=== PATIENT | male | born 1930 | race Caucasian/White ===

== ENCOUNTER 2016-07-12 09:26 | Inpatient (IN) | payer OTHER ==
[~2016-07-12] VITALS: Ht 195.6 cm; Wt 91.1 kg
[2016-07-12] VITALS (9 sets, daily range): BP systolic 93–156; BP diastolic 40–54
--- NOTE | ~2016-07-12 | P ---
[facility] [place] [address] PROCEDURE REPORT Name: ELDER MIRANDA Room #: 214-P [facility] IN ..#: [id number] Admission: 07/12/16 Attend Phys: Bill Turner MD Discharge: 07/14/16 Date of : 10/[birth year] Report #: [id number] THIS REPORT FOR: //name// CC: Brit Turner MD DATE OF SERVICE: 07/13/2016 PROCEDURE PERFORMED: Colonoscopy with bleeding control and polypectomy. HISTORY OF PRESENT ILLNESS: The patient is an 85-year-old male with GI bleed and anemia, was transfused 2 units of packed cells. He described as maroon-colored stools. He has a previous history of cecal AVMs and diverticulosis 4 years ago as well as polyps at that time. DESCRIPTION OF PROCEDURE: The risks and benefits of the procedure were explained to the patient, those risks including but not limited to bleeding, perforation, the risk of sedation. He understood these risks and gave informed consent. Sedation was given using propofol and ketamine per anesthesia. Next, a digital rectal exam was initially performed, which was normal. Next, using a standard NanoHorizonsinon colonoscope, the scope was placed in the patient's anus and advanced under direct vision to the cecum. The overall prep was good. In the cecum near the appendiceal orifice was a 5 mm sessile polyp, this was removed by snare cautery. Two nonbleeding AVMs were noted; however, one was friable and had a small amount of bright red blood nearby suggesting recent bleed, both were cauterized with a 10-Nicar[place] bipolar cautery. There was no evidence of bleeding after cauterization. Two further AVMs were noted in the proximal ascending colon, also not actively bleeding, but again blood nearby, therefore these were cauterized. No bleeding was noted after cauterization. The transverse and descending colon were normal. Multiple diverticula were noted in the sigmoid colon, no evidence of inflammation. The rectal mucosa was normal. On retroflexion, small to medium sized nonbleeding internal hemorrhoids were noted, otherwise normal colonoscopy. The scope was then withdrawn and the procedure terminated. The patient tolerated the procedure well. IMPRESSION: 1. Four total colonic AVMs, likely source of recent GI bleed, status post cauterization. 2. Multiple diverticula in the descending, sigmoid colon, no active inflammation or active bleeding. 3. Medium sized nonbleeding internal hemorrhoids. 4. Cecal polyp. RECOMMENDATIONS: 1. Observe the patient post-procedure. [address] [address] PROCEDURE REPORT Name: ELDER MIRANDA Room #: 214-P [facility] IN .R.#: [id number] Admission: 07/12/16 Attend Phys: Bill Turner MD Discharge: 07/14/16 Date of : 10/28/[birth year] Report #: [id number] 2. Await biopsy results. 3. I suspect recent bleeding was secondary to colonic AVMs, which were cauterized today; however, it is possible that he could have had a bleed from his gastric ulcers or sigmoid diverticulosis. At this point, would continue to hold aspirin, continue PPI therapy, monitoring hemoglobin, will advance diet. Thank you for allowing me to participate in his care. <ELECTRONICALLY SIGNED> By: Hema Ravi MD 07/16/16 0820 1328 1400 Hema Ravi MD /nt
--- NOTE | ~2016-07-12 | S ---
[facility] [place] [address] SURGICAL PATH RPT PROCEDURE Name: KOREY MIRANDA W Room #: 214-P DIS IN M.R.#: [id number] Admission: 07/12/16 Date of : 10/[birth year] Discharge: 07/14/16 Report #: [id number] Path Case #: [id number] PATHOLOGY REPORT COLLECTION DATE: 07/13/2016 RECEIVED DATE: 07/14/2016 SUBMITTING PHYS: Dr. Hema Ravi OTHER PHYS: DALTON Lundy Dr. SPECIMEN(S) RECEIVED: A.Cecum polyp * * * * * * * * * * * * FINAL DIAGNOSIS: Cecum, cecum polyp, endoscopic biopsy: - Tubular adenoma. - Negative for high grade dysplasia. (IUV:csd; d/t: 07/15/2016) PATHOLOGIST: Lacie Avila M.D. REPORT ELECTRONICALLY SIGNED BY: Lacie Avila M.D. DATE/TIME: 07/15/2016 15:05 * * * * * * * * * * * * GROSS PATHOLOGY: Received in formalin labeled "Korey Miranda and cecum," are 3 segments of reyez soft tissue measuring 1.0 x 0.3 x 0.3 cm in aggregate dimensions and ranging from 0.3 to 0.4 cm in maximum dimension. The specimen is submitted entirely in cassette A1. (TTL; 07/14/2016) CLINICAL HISTORY: Anemia INITIAL CPT CODE(S): A; 16384 Professional services performed by [facility] at [facility] [address] [place] [address] Technical services performed by [facility] at [address] [place] [id number]. [facility] [address] [place] [address] SURGICAL PATH RPT PROCEDURE Name: KOREY MIRANDA Room #: 214-P DIS IN M.R.#: [id number] Admission: 07/12/16 Date of : 10/28/28 Discharge: 07/14/16 Report #: [id number] Path Case #: [id number] [address] PHONE: [phone] DIRECTOR: Madi Keith M.D. * * * END OF REPORT * * *
--- NOTE | ~2016-07-12 | H ---
[facility] [place] [address] HISTORY AND PHYSICAL Name: ELDER MIRANDA Room #: 214-P ADM IN M.R.#: [id number] Admission: 07/12/16 Attend Phys: Bill Turner MD Discharge: Date of : 10/28/28 Report #: [id number] THIS REPORT FOR: //name// CC: Brit Turner DATE OF SERVICE: 07/12/2016 CHIEF COMPLAINT: Bright red blood per rectum. HISTORY OF PRESENT ILLNESS: The patient is an 85-year-old male, well known to me who states he had some bright red blood in the stool. He felt dizzy and lightheaded. He had some abdominal pain and nausea with it as well. He also became more short of breath. He had a prior GI bleed about a year ago as well. Last time his bleed resolved spontaneously. PAST MEDICAL HISTORY: Significant for: 1. Prior GI bleed. 2. CVA. 3. Prior carotid endarterectomy. 4. Prior cholecystectomy. 5. Prior CVA with left-sided weakness. 6. Third-degree heart block with pacemaker. MEDICATIONS: Lorazepam 2 mg at bedtime, Linzess 290 mcg daily, Cozaar 100 mg a day, Pravastatin 40 mg a day, and aspirin 325 mg a day. ALLERGIES: KEFLEX and OXYCODONE. SOCIAL HISTORY: Prior smoker, no alcohol, no recreational drugs. REVIEW OF SYSTEMS: CONSTITUTIONAL: No fevers or chills. HEENT: No headaches or visual changes. CHEST: No chest pain, tightness in the chest, short of breath, cough, or sputum production. GASTROINTESTINAL: Blood per rectum and nausea. No vomiting. GENITOURINARY: No burning or frequency. EXTREMITIES: No joint pains or swelling. SKIN: No rashes or wounds. PHYSICAL EXAMINATION: VITAL SIGNS: In the ER, blood pressure is , pulse is 84, respiratory rate is 10, and O2 sats 98% on room air. GENERAL: He is awake, alert, in no acute distress. HEENT: His mucous membranes are moist. [address] [address] HISTORY AND PHYSICAL Name: ELDER MIRANDA Room #: 214-P [facility] IN ..#: [id number] Admission: 07/12/16 Attend Phys: Bill Turner MD Discharge: Date of : 10/28/28 Report #: [id number] NECK: Supple. CHEST: Clear to auscultation. CARDIOVASCULAR: He has an irregular rhythm with rate of 80s. ABDOMEN: Soft, no masses. Nontender. At this time, his bowel sounds are active. There is no hepatosplenomegaly. He had bright red blood per rectum. EXTREMITIES: Show pulses are intact. No edema. SKIN: No wounds or rashes. LABORATORY DATA: EKG showed a paced rhythm, 68. Sodium 139, potassium 4.0, chloride 108, bicarb 22, BUN 25, creatinine 1.8, glucose 210, direct bili is 0.1, total bilirubin is 0.2, AST 18, ALT 18, alk phos 94. Lipase 225. WBC is 8.0, hemoglobin 8.4, hematocrit 25.2, platelet count 210, segs 74, and lymphs 18. ASSESSMENT: 1. Gastrointestinal bleeding. We will go ahead and consult GI. He is to be taken for endoscopy on the . We will monitor serial hemoglobins. 2. Significant anemia with a hemoglobin of 8.4. We will monitor serial hemoglobins and probably transfuse gets below 8. By: 1238 1330 Bill Turner MD /nt
--- NOTE | ~2016-07-12 | P ---
[facility] [place] [address] PROCEDURE REPORT Name: ELDER MIRANDA Room #: 214-P [facility] IN ..#: [id number] Admission: 07/12/16 Attend Phys: Bill Turner MD Discharge: 07/14/16 Date of : 10/28/28 Report #: [id number] THIS REPORT FOR: //name// CC: Brit Turner MD DATE OF SERVICE: 07/13/2016 PROCEDURE PERFORMED: Upper endoscopy. HISTORY OF PRESENT ILLNESS: The patient is an 85-year-old male with recent GI bleed described as maroon-colored stools. He has a history of previous lower gastrointestinal bleed, possibly due to diverticulosis or cecal AVMs in 2013, AVMs at that time were cauterized. He has been on aspirin 325 mg per day. He has been transfused 2 units of packed cells. Plan is for EGD and colonoscopy today. DESCRIPTION OF PROCEDURE: The risks and benefits of the procedure were explained to the patient, those risks including but not limited to bleeding, perforation, the risk of sedation. He understood these risks and gave informed consent. Sedation was given using propofol and ketamine per anesthesia. Next, using a standard [place] [employer] Assist[employer]on upper endoscope, the scope was placed in the patient's mouth and advanced under direct vision through the esophagus, stomach and into the second portion of the duodenum. The esophagus was normal throughout. The GE junction was normal. In the stomach, there were multiple small gastric erosions and several linear gastric ulcers, these were clean white based, they varied in size from 4 mm to approximately 1 cm. They typically were seen in the body, although several were noted at the ____ and in the antrum. There was no active bleeding. There was no evidence of blood throughout the exam today. The pylorus was normal and patent. The duodenal bulb, first and second portion were all normal. The scope was then withdrawn and the procedure terminated. The patient tolerated the procedure well. IMPRESSION: Gastritis with multiple small erosions and several linear ulcers. No active bleeding, possible source of recent GI bleed, but again no evidence of blood on exam today. RECOMMENDATIONS: 1. Continue PPI therapy. 2. We will check H. pylori antibody. 3. We will proceed with colonoscopy next today. [address] [address] PROCEDURE REPORT Name: RUBENELDER Jose Room #: 214-P [facility] IN .R.#: [id number] Admission: 07/12/16 Attend Phys: Bill Turner MD Discharge: 07/14/16 Date of : 10/28/28 Report #: [id number] Thank you for allowing me to participate in his care. <ELECTRONICALLY SIGNED> By: Hema Ravi MD 07/16/16 0820 1325 1358 Hema Ravi MD /nt
--- NOTE | ~2016-07-12 | EKG ---
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
[~2016-07-12 09:26] MED LIST: ASPIRIN325 PO; ATENOLOL 25 MG25 M1 PO; ATIVAN PO; ATIVAN1 MG PO; ATORVASTATIN CA40 MG PO; COZAAR100 MG PO; FLOMAX0.4 MG PO; FLONASE 0.05%50 MCG NASAL; GLYBURIDE 3 MG M3 M1 PO; HYDROCHLOROTHIA25 M1 PO; LINZESS290 MCG PO; LORAZEPAM 22 MG/1 ML PO; LORAZEPAM 2MG TA2 M1 PO; PLAVIX 75 MG TA75 MG PO; PRAVACHOL40 MG PO; TRICOR145 MG PO; VYTORIN 10-801 EACH PO
[2016-07-12 10:19] LABS: ABSOLUTE NEUTROPHILS 5.9 thou/uL (1.4-8.2); BASOPHILS 0.6 % (0.0-2.0); HEMATOCRIT 25.2 % (42.0-52.0); HEMOGLOBIN 8.4 gm/dL (14.0-18.0); LYMPHOCYTES 18.5 % (24.0-44.0); MCH 31.1 pg (26.0-34.0); MCHC 33.4 g/dL (28.0-37.0); MCV 93.1 fL (80.0-100.0); PLATELET COUNT 210 thou/uL (150-400); POLYS 73.9 % (36.0-66.0); RBC 2.71 mil/uL (4.50-6.00); RDW 14.2 % (10.5-14.5)
[2016-07-12 10:21] LABS: MANUAL DIFF NO
[2016-07-12 10:22] LABS: ANION GAP 9 mmol/L (7-16); BUN 25 mg/dL (7-18); CALCIUM 8.5 mg/dL (8.5-10.1); CHLORIDE 108 mmol/L (98-107); CO2 22 mmol/L (21-32); CREATININE 1.8 mg/dL (0.6-1.3); GLUCOSE 210 mg/dL (70-99); SODIUM 139 mmol/L (136-145)
[2016-07-12 10:26] LABS: ALKALINE PHOSPHATASE 94 U/L (46-116); SGOT 18 U/L (15-37); SGPT 18 U/L (30-65); TOTAL BILIRUBIN 0.2 mg/dL (<0.1-1.0); TOTAL PROTEIN 6.1 g/dL (6.4-8.2)
[2016-07-12 10:39] LABS: DIRECT BILIRUBIN < 0.1 mg/dL (<0.1-0.3)
[2016-07-13 04:00] VITALS: BP 145/49
[2016-07-13 06:52] LABS: HEMATOCRIT 24.5 % (42.0-52.0); HEMOGLOBIN 8.5 gm/dL (14.0-18.0); MCH 30.7 pg (26.0-34.0); MCHC 34.6 g/dL (28.0-37.0); MCV 88.9 fL (80.0-100.0); RBC 2.76 mil/uL (4.50-6.00); RDW 15.1 % (10.5-14.5); WBC 5.9 thou/uL (4.0-11.0)
[2016-07-13 07:07] LABS: CALCIUM 7.8 mg/dL (8.5-10.1); CREATININE 1.3 mg/dL (0.6-1.3); POTASSIUM 4.3 mmol/L (3.5-5.1)
[2016-07-13 07:55] VITALS: BP 145/58
[2016-07-13 11:13] VITALS: BP 164/80
[2016-07-13 15:55] VITALS: BP 178/8
[2016-07-13 19:53] VITALS: BP 150/74
[2016-07-14 03:23] VITALS: BP 138/51
[2016-07-14 07:40] VITALS: BP 146/61
[2016-07-14 09:26] LABS: HEMATOCRIT 27.7 % (42.0-52.0); HEMOGLOBIN 9.5 gm/dL (14.0-18.0); MCH 31.1 pg (26.0-34.0); MCHC 34.4 g/dL (28.0-37.0); MCV 90.4 fL (80.0-100.0); RBC 3.07 mil/uL (4.50-6.00); RDW 15.1 % (10.5-14.5); WBC 6.7 thou/uL (4.0-11.0)
[2016-07-14 09:43] VITALS: BP 146/61
[2016-07-14 10:04] VITALS: BP 146/61
== END 2016-07-14 13:00 | disposition home health service (06) | DRG 378 ==
LOC: ER 09:26 → EROBS 11:24 → 2N 11:24
PROVIDERS: Emergency Medicine; Family Medicine; Nurse Practitioner Adult Health
PROC: 30233N1 Transfusion of Nonautologous Red Blood Cells into Peripheral Vein, Percutaneous Approach (ICD-10-PCS; principal; 2016-07-12)
PROC: 0DBH8ZX Excision of Cecum, Via Natural or Artificial Opening Endoscopic, Diagnostic (ICD-10-PCS; 2016-07-13)
PROC: 0DJ08ZZ Inspection of Upper Intestinal Tract, Via Natural or Artificial Opening Endoscopic (ICD-10-PCS; 2016-07-13)
DX: K92.1 Melena (principal); I69.354 Hemiplegia and hemiparesis following cerebral infarction affecting left non-dominant side; D64.9 Anemia, unspecified; I25.10 Atherosclerotic heart disease of native coronary artery without angina pectoris; E78.5 Hyperlipidemia, unspecified; K29.70 Gastritis, unspecified, without bleeding; D12.0 Benign neoplasm of cecum; K59.00 Constipation, unspecified; K25.9 Gastric ulcer, unspecified as acute or chronic, without hemorrhage or perforation; Q27.33 Arteriovenous malformation of digestive system vessel; I25.2 Old myocardial infarction; Z88.6 Allergy status to analgesic agent; Z91.041 Radiographic dye allergy status; Z88.1 Allergy status to other antibiotic agents; Z95.0 Presence of cardiac pacemaker; Z90.49 Acquired absence of other specified parts of digestive tract; Z87.891 Personal history of nicotine dependence
CPT/HCPCS: 10194; 62110; 62900; 70005

== ENCOUNTER 2016-07-29 16:58 | Inpatient (IN) | payer OTHER ==
[~2016-07-29] VITALS: Ht 195.6 cm; Wt 86.2 kg
--- NOTE | ~2016-07-29 | EKG ---
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: sadiq : 1930 Requested By: Gaby Parks Order Number: [id number] MD: Karthik Traore Measurements Intervals [place] Rate: 63 P: 44 [place]: 320 QRS: -13 QRSD: 144 T: -77 QT: 429 QTc: 440 Interpretive Statements Sinus rhythm with intermittent ventricular pacing Multiple ventricular premature complexes Prolonged [place] interval Right bundle branch block ST and T wave abnormality Compared to ECG 07/12/2016 12:08:48 a sinus rhythm with ventricular pacing has replaced atrial fibrillation Electronically Signed On 07-30-2016 8:44:01 CDT by Karthik Traore [email or web address] <ELECTRONICALLY SIGNED> By: Karthik Traore MD, [facility] 07/30/16 0844 175 175 Karthik Traore MD, [facility] /EPI
--- NOTE | ~2016-07-29 | H ---
[facility] [place] [address] HISTORY AND PHYSICAL Name: ELDER MIRANDA Room #: 459-P ADM IN M.R.#: [id number] Admission: 07/29/16 Attend Phys: Bill Turner MD Discharge: Date of : 10/28/28 Report #: [id number] THIS REPORT FOR: //name// CC: Mya Turner DATE OF SERVICE: 07/30/2016 CHIEF COMPLAINT: Bright red blood per rectum. HISTORY OF PRESENT ILLNESS: The patient is an 85-year-old male who was just in the hospital with lower GI bleed, had colonoscopy which showed AVMs. He has been home, having normal bowel movements, when he suddenly started developing significant bright red blood per rectum yesterday. He became more weak and short of breath with this. He denied any chest pain, however. PAST MEDICAL HISTORY: Significant for: 1. Recent AVMs of his colon. 2. Prior CVA in 1998 with left-sided weakness. 3. Surgery, heart block with pacemaker. 4. Prior carotid endarterectomy in 2003. 5. Prostate mass, benign. 6. Hernia repair. 7. Gallbladder surgery. 8. Anxiety. 9. Hyperlipidemia. 10. Hypertension. 11. Chronic constipation. MEDICATIONS: Lorazepam 1 mg a day, Linzess 290 mcg a day, losartan 100 mg a day, Pravachol 40 mg a day, aspirin 325 mg a day. ALLERGIES: KEFLEX AND OXYCODONE. SOCIAL HISTORY: Prior smoker, no alcohol, no recreational drugs. REVIEW OF SYSTEMS: CONSTITUTIONAL: No fever or chills. HEENT: No headaches or visual changes. CHEST: No chest pain, tightness in chest. He does have shortness of breath which was chronic, no palpitations. GASTROINTESTINAL: Bright red blood per rectum. No nausea, vomiting or diarrhea. GENITOURINARY: No burning or frequency. EXTREMITIES: No new joint pains or swelling. SKIN: No new rashes or wounds. [facility] [address] [place] [address] HISTORY AND PHYSICAL Name: ELDER MIRANDA Room #: 459-[facility] IN [facility].#: [id number] Admission: 07/29/16 Attend Phys: Bill Turner MD Discharge: Date of : 10/28/28 Report #: [id number] NEUROLOGIC: No new numbness or weakness. PHYSICAL EXAMINATION: VITAL SIGNS: Blood pressure 109/52, pulse is 70, respirations 18. He is afebrile. GENERAL: The patient is awake, alert, no distress. HEENT: His mucous membranes are moist. NECK: Supple, without adenopathy, thyromegaly or bruits. CHEST: Clear to auscultation. CARDIOVASCULAR: Irregular, without murmur. ABDOMEN: Soft, nondistended, nontender, no masses. Bowel sounds are active. RECTAL: In the ER did a rectal exam was positive for bright red blood. EXTREMITIES: Showed no edema. Pulses are intact. SKIN: intact. No numbness or weakness. LABORATORY DATA: Sodium 138, potassium 3.9, chloride 105, bicarbonate 25, BUN 17, creatinine 1.5, glucose 178. Lactate acid 1.0. WBCs 3.4, hemoglobin 8.9, hematocrit 26.5, platelet count 207, 50 segs, 1 band, 35 lymphs. ASSESSMENT: 1. Lower gastrointestinal bleed, recurrent. We will admit, consult GI for likely recurrent scope. We will monitor his hemoglobin, his initial was 8.9, second was 8.5. Get an another one this morning. We will hold his aspirin for now. 2. Hypertension. Continue his home medications. 3. Hyperlipidemia. We can hold his statin for now. 4. Prior CVA, currently stable. 5. GI has ordered an nuclear medicine bleeding scan, which did not show any evidence of any active bleeding done overnight. By: 0751 1005 Bill Turner MD /nt
[2016-07-29 17:02] VITALS: BP 109/52
[2016-07-29 17:22] LABS: HEMATOCRIT 26.5 % (42.0-52.0); HEMOGLOBIN 8.9 gm/dL (14.0-18.0); MCH 30.4 pg (26.0-34.0); MCHC 33.7 g/dL (28.0-37.0); MCV 90.3 fL (80.0-100.0); PLATELET COUNT 207 thou/uL (150-400); RBC 2.93 mil/uL (4.50-6.00); RDW 14.7 % (10.5-14.5); WBC 3.4 thou/uL (4.0-11.0)
[2016-07-29 17:23] LABS: MANUAL DIFF YES
[2016-07-29 17:32] LABS: CALCIUM 7.9 mg/dL (8.5-10.1); CREATININE 1.5 mg/dL (0.7-1.3); POTASSIUM 3.9 mmol/L (3.5-5.1)
[2016-07-29 17:43] LABS: ABSOLUTE NEUTROPHILS 1.7 thou/uL (1.4-8.2); TOTAL CELL COUNT 100
[2016-07-29 19:29] VITALS: BP 109/52
[2016-07-29 19:55] VITALS: BP 140/48
[2016-07-29 23:24] LABS: HEMATOCRIT 25.3 % (42.0-52.0); HEMOGLOBIN 8.5 gm/dL (14.0-18.0)
[2016-07-29 23:40] VITALS: BP 153/62
[2016-07-30 04:00] VITALS: BP 116/54
[2016-07-30 07:44] VITALS: BP 132/44
[2016-07-30 09:34] LABS: HEMOGLOBIN 8.1 gm/dL (14.0-18.0)
[2016-07-30 11:46] VITALS: BP 144/56
[2016-07-30 15:21] LABS: HEMATOCRIT 22.7 % (42.0-52.0); HEMOGLOBIN 7.6 gm/dL (14.0-18.0)
[2016-07-30 15:33] VITALS: BP 145/65
[2016-07-30 19:20] VITALS: BP 116/54
[2016-07-31 03:32] VITALS: BP 120/51
[2016-07-31 05:49] LABS: HEMATOCRIT 22.6 % (42.0-52.0); HEMOGLOBIN 7.5 gm/dL (14.0-18.0); MCHC 33.4 g/dL (28.0-37.0); MCV 89.9 fL (80.0-100.0); RBC 2.51 mil/uL (4.50-6.00); RDW 14.2 % (10.5-14.5); WBC 5.8 thou/uL (4.0-11.0)
[2016-07-31 06:02] LABS: CALCIUM 7.9 mg/dL (8.5-10.1); CREATININE 1.3 mg/dL (0.7-1.3); POTASSIUM 4.4 mmol/L (3.5-5.1)
[2016-07-31 08:00] VITALS: BP 120/47
[2016-07-31 12:20] VITALS: BP 122/35
[2016-07-31 15:50] VITALS: BP 117/52
[2016-07-31 19:11] VITALS: BP 122/56
[2016-08-01 04:19] VITALS: BP 143/48
[2016-08-01 05:27] LABS: HEMOGLOBIN 7.1 gm/dL (14.0-18.0); MCH 29.9 pg (26.0-34.0); MCHC 33.9 g/dL (28.0-37.0); MCV 88.3 fL (80.0-100.0); RBC 2.39 mil/uL (4.50-6.00); WBC 4.1 thou/uL (4.0-11.0)
[2016-08-01 08:37] VITALS: BP 135/56
[2016-08-01 11:58] VITALS: BP 137/43
[2016-08-01 15:07] VITALS: BP 135/76
[2016-08-01 19:04] VITALS: BP 146/45
[2016-08-02 03:32] VITALS: BP 138/45
[2016-08-02 05:26] LABS: HEMATOCRIT 22.1 % (42.0-52.0); HEMOGLOBIN 7.4 gm/dL (14.0-18.0); MCH 30.1 pg (26.0-34.0); MCHC 33.7 g/dL (28.0-37.0); MCV 89.4 fL (80.0-100.0); RBC 2.47 mil/uL (4.50-6.00); RDW 14.2 % (10.5-14.5); WBC 4.2 thou/uL (4.0-11.0)
[2016-08-02 07:11] VITALS: BP 144/58
[2016-08-02 12:05] VITALS: BP 125/54
[2016-08-02] MEDS ORDERED: IRON325 PO (12:38)
[2016-08-02 12:43] VITALS: BP 125/54
== END 2016-08-02 14:00 | disposition home or self-care (01) | DRG 378 ==
LOC: ER 16:58 → EROBS 18:41 → 4W 18:41
PROVIDERS: Emergency Medicine; Family Medicine; Internal Medicine Gastroenterology; Nurse Practitioner Adult Health
DX: K92.2 Gastrointestinal hemorrhage, unspecified (principal); I69.954 Hemiplegia and hemiparesis following unspecified cerebrovascular disease affecting left non-dominant side; N17.9 Acute kidney failure, unspecified; I69.910 Attention and concentration deficit following unspecified cerebrovascular disease; E78.5 Hyperlipidemia, unspecified; F41.9 Anxiety disorder, unspecified; K59.09 Other constipation; I25.10 Atherosclerotic heart disease of native coronary artery without angina pectoris; R41.3 Other amnesia; I45.9 Conduction disorder, unspecified; D64.9 Anemia, unspecified; E11.9 Type 2 diabetes mellitus without complications; Q27.33 Arteriovenous malformation of digestive system vessel; Z88.6 Allergy status to analgesic agent; Z88.1 Allergy status to other antibiotic agents; Z91.041 Radiographic dye allergy status; Z95.0 Presence of cardiac pacemaker; Z90.49 Acquired absence of other specified parts of digestive tract; Z79.899 Other long term (current) drug therapy; Z95.5 Presence of coronary angioplasty implant and graft
CPT/HCPCS: 10045

== ENCOUNTER → 2016-08-10 | Outpatient (CLI) | payer OTHER ==
[~2016-08-10] MED LIST changes: +IRON325 PO
== END ==
LOC: RAD 10:40
DX: R05 Cough (principal)

== ENCOUNTER 2017-06-10 12:41 | Emergency (ER) | payer OTHER ==
[~2017-06-10] VITALS: Ht 193 cm; Wt 97.5 kg
[2017-06-10 14:14] LABS: ABSOLUTE NEUTROPHILS 7.6 thou/uL (1.4-8.2); BASOPHILS 0.4 % (0.0-2.0); EOSINOPHILS 0.3 % (0.0-3.0); HEMATOCRIT 40.5 % (42.0-52.0); HEMOGLOBIN 13.6 gm/dL (14.0-18.0); MCHC 33.5 g/dL (28.0-37.0); MCV 92.5 fL (80.0-100.0); MONOCYTES 4.8 % (1.0-8.0); PLATELET COUNT 198 thou/uL (150-400); POLYS 84.5 % (36.0-66.0); RBC 4.38 mil/uL (4.50-6.00); RDW 13.9 % (10.5-14.5)
[2017-06-10 14:20] LABS: CALCIUM 9.5 mg/dL (8.5-10.1); CREATININE 1.6 mg/dL (0.7-1.3)
[2017-06-10 14:22] LABS: POTASSIUM 5.5 mmol/L (3.5-5.1)
[2017-06-10 15:26] LABS: URINE BILIRUBIN NEGATIVE (Negative); URINE BLOOD 3+ (Negative); URINE CLARITY SL CLOUDY; URINE COLOR YELLOW; URINE GLUCOSE-RANDOM* NEGATIVE (Negative); URINE KETONES TRACE (Negative); URINE LEUKOCYTES-REFLEX NEGATIVE (Negative); URINE NITRITE-REFLEX NEGATIVE (Negative); URINE PROTEIN (DIPSTICK) 2+ (Negative); URINE SPECIFIC GRAVITY >= 1.030 (1.005-1.035); URINE UROBILINOGEN 0.2 E.U./dl (0.2-1.0)
[2017-06-10 15:33] LABS: URINE RBC >20 Many /HPF (0-2)
[2017-06-10 15:34] LABS: AMORPHOUS URATES Moderate /LPF (None Seen); SQUAMOUS 0-3 Few /LPF (0-3); URINE WBC-REFLEX 0-5 Rare /HPF (0-5)
[2017-06-10 15:35] LABS: CASTS None Seen /LPF (None Seen)
[2017-06-10] MEDS ORDERED: CIPRO500 MG PO (15:41)
[2017-06-10 16:02] VITALS: BP 138/78
== END 2017-06-10 16:03 | disposition home or self-care (01) ==
LOC: ER 12:41
PROVIDERS: Physician Assistant
DX: N39.0 Urinary tract infection, site not specified (principal); R31.9 Hematuria, unspecified; N18.9 Chronic kidney disease, unspecified; F17.210 Nicotine dependence, cigarettes, uncomplicated; Z88.6 Allergy status to analgesic agent; Z91.041 Radiographic dye allergy status; Z88.1 Allergy status to other antibiotic agents

== ENCOUNTER 2017-09-08 16:17 | Inpatient (IN) | payer OTHER ==
[~2017-09-08] VITALS: Ht 193 cm; Wt 99.1 kg
--- NOTE | ~2017-09-08 | PATH ---
[facility] [address] [place] [address] PATHOLOGY RPT PROCEDURE Name: KOREY MIRANDA Room #: 214-P ADM IN M.R.#: [id number] Admission: 09/08/17 Date of : 10/[birth year] Discharge: Report #: [id number] Path Case #: [id number] [facility] Accession Number: [id number] . 01 Material submitted: . PART A: BX OF DUODENUM PART B: BX OF GASTRIC . 02 Diagnosis: A. Small bowel, duodenum (duodenitis): - Moderate active duodenitis associated with fibrotic lamina propria and active surface epithelial inflammation. - Minimal villous blunting identified. - No increase in intraepithelial lymphocytes. - Negative for dysplasia. . B. Gastric mucosa, gastric (gastritis), endoscopic biopsy): - Mild chronic active gastritis with focal ulceration and fibrotic lamina propria. - Negative for intestinal metaplasia or atrophy. - No definite Helicobacter pylori identified. (please see comment) QRQ/09/14/2017 . 02 Comment: A well controlled Helicobacter pylori immunohistochemical stain performed on block B1-definitive organisms not identified (non-specific focal reactivity present). . An intensive search for Helicobacter pylori-like organisms is negative. Absence of such organisms does not entirely exclude the possibility and may be due to sampling. Other possible etiologies may include chemical gastritis, autoimmune gastritis, gastritis associated with inflammatory bowel disease. Please correlate with clinical, endoscopic, and microbiological studies if clinically indicated. (IUV:mgr; 09/14/17) . 02 Electronically signed: . Lacie Avila MD, Pathologist NPI- [id number] . 01 Gross description: . A. Received in formalin labeled "Korey Miranda, BX of duodenum" and consists of 3 soft reyez tissue fragments each averaging 0.2 cm. They are entirely submitted as A1. . B. Received in formalin labeled "Korey Miranda, biopsy of gastric" and consists of 4 soft reyez tissue fragments each averaging 0.2 [place] [address] PATHOLOGY RPT PROCEDURE Name: KOREY MIRANDA Room #: 214-P [facility] IN M.R.#: [id number] Admission: 09/08/17 Date of : 10/28/[birth year] Discharge: Report #: [id number] Path Case #: [id number] entirely submitted as B1. (ILYA; 09/13/2017) JBR/JBR . 02 CPT . 401387, [id number] Performed at: [address] [facility], [place], [place] [id number] MD Gordon Cortez MD Phone: [phone] Performed at: [address] [id number] MD Lacie Avila MD Phone: [phone]
--- NOTE | ~2017-09-08 | HC ---
[facility] [address] CONSULTATION Name: ELDER MIRANDA Room #: 214-P [facility]..#: [id number] Admission: 09/08/17 Attend Phys: Cedrick Harris MD Discharge: 09/16/17 Date of : 10/28/[birth year] Report #: [id number] THIS REPORT FOR: //name// CC: Cedrick Perea Christian Wolff Kirk DATE OF SERVICE: 09/13/2017 REASON FOR CONSULTATION: Dysphagia. HISTORY OF PRESENT ILLNESS: The patient is an 86-year-old male, who has a history of a left carotid endarterectomy, third-degree heart block, stroke with left hemiparesis, who came last week from [facility] complaining of sore throat and difficulty swallowing. He had some trouble with his throat and was trying to gargle salt water, which he could not do. He has a friend who looks on him twice a week and they found him in his apartment. He had not been eating. He is short of breath, weak and has poor appetite. He has been admitted to the hospital, has pneumonia, community acquired. I have been asked to evaluate his difficulty with his swallow. He did have a video swallow study today and he failed all consistencies and has been placed n.p.o. He has refused a PEG tube and says that it is too prominent and does not have a PEG tube placed under any circumstances. PAST MEDICAL HISTORY: Significant for cholecystectomy, hernia repair, carotid endarterectomy, prostate biopsy, stroke, third-degree heart block, peripheral vascular disease. FAMILY HISTORY: Noncontributory. SOCIAL HISTORY: Tobacco use in the past. He has been a former smoker. REVIEW OF SYSTEMS: Significant for difficulty swallowing and sore neck and throat. PHYSICAL EXAMINATION: GENERAL: He is a well-developed male. He is a little bit agitated. HEENT: Head is normocephalic. Pupils are equal, round and reactive. Nasal, no active rhinorrhea. Oral cavity, pharynx is otherwise normal. NECK: Palpation of his neck is very tender. Thyroid and cricoid cartilages, he is a little bit hoarse. Refuses an exam of his hypopharynx via scope at this time. IMPRESSION: 1. Dysphagia. 2. Failed video swallow study. [address] [address] CONSULTATION Name: ELDER MIRANDA Room #: 214-P [facility] IN .R.#: [id number] Admission: 09/08/17 Attend Phys: Cedrick Harris MD Discharge: 09/16/17 Date of : 10/28/28 Report #: [id number] 3. Refusal of percutaneous gastrostomy placement at this time. PLAN: I have recommended he get a CT scan of his neck to rule out any submucosal disease that would be causing his significant soreness over the cartilages. He has started on steroids, which would be helpful for any inflammatory disease and may also be helpful for his swallow in the future. He needs to have some kind of enteral nutrition and it would be far more advisable to place a nasogastric tube and try to make this up with parenteral nutrition at this time. I did ask him about placing a nasogastric tube and he said that he would allow for this, although he does not want to have a PEG tube placed. <ELECTRONICALLY SIGNED> By: Austin Low MD 09/19/17 0746 1759 1833 Austin Low MD /nt
--- NOTE | ~2017-09-08 | EKG ---
[address] [place] [address] ELECTROCARDIOGRAM REPORT Name: ELDER MIRANDA Room #: 403-P [facility] IN .R.#: [id number] Admission: 09/08/17 Attend Phys: Cedrick Harris MD Discharge: Date of : 10/28/28 Report #: [id number] THIS REPORT FOR: //name// [facility] ED Test Date: 2017-09-08 Test Time: 18:40:31 Pat Name: ELDER MIRANDA Department: Room: Gender: M Consumer Loan Officer: [facility] : 1930 Requested By: Pallavi Cordon Order Number: [id number] MD: Arsen Paiz Measurements Intervals [place] Rate: 79 P: 61 SD: 249 QRS: -72 QRSD: 139 T: 102 QT: 409 QTc: 469 Interpretive Statements Ventricular-paced complexes No further analysis attempted due to paced rhythm Compared to ECG 07/29/2016 17:52:32 Sinus rhythm no longer present Ventricular premature complex(es) no longer present First degree AV block no longer present Right bundle-branch block no longer present Electronically Signed On 09-08-2017 22:00:04 CDT by Arsen Paiz [email or web address] <ELECTRONICALLY SIGNED> By: Arsen Paiz MD 09/08/172199 39 39 Arsen Paiz MD /EPI
--- NOTE | ~2017-09-08 | P ---
[facility] [place] [address] PROCEDURE REPORT Name: MIRANDAELDER Damon Room #: 214-P [facility] IN ..#: [id number] Admission: 09/08/17 Attend Phys: Cedrick Harris MD Discharge: Date of : 10/28/28 Report #: [id number] THIS REPORT FOR: //name// CC: CEDRICK Harris Brit Wolff Dianedashdoretha DATE OF SERVICE: 09/09/2017 PROCEDURE PERFORMED: Upper endoscopy with biopsies and esophageal dilation. HISTORY OF PRESENT ILLNESS: The patient is an 86-year-old male who was admitted with pneumonia, but has significant dysphagia. Initially, we were planning on possible EGD today, but due to the pneumonia this was held and in speaking with the patient, however, he has been unable to swallow liquids or solids, therefore plan is for EGD. DESCRIPTION OF PROCEDURE: The risks and benefits of the procedure were explained to the patient, those risks including but not limited to bleeding, perforation, the risk of sedation. He understood these risks and gave informed consent. Sedation was given using propofol per anesthesia. Next, using a standard Olympus upper endoscope, the scope was placed in the patient's mouth and advanced under direct vision through the esophagus, stomach and into the second portion of the duodenum. There was a small amount of edema near the larynx. The scope did pass through this area without difficulty, however. The upper and mid esophagus was normal. In the distal esophagus, a mild Schatzki's ring was noted. No esophagitis. I was able to pass the scope through this area without difficulty. No resistance. A small hiatal hernia was noted. There was a mild diffuse gastritis. Biopsies were obtained. The pylorus was normal and patent. The duodenal bulb, first and second portion was a mild duodenitis, biopsies were also obtained in this area. The scope was then brought back up into the patient's stomach and Savary dilation was then performed of the esophagus using a 48-dilator without difficulty. The wire and dilator removed. The scope was reintroduced into the patient's stomach. There was no evidence of mucosal tear after dilation. The scope was then withdrawn and the procedure terminated. The patient tolerated the procedure well. IMPRESSION: 1. Mild edema near the larynx, this may be playing a role on his dysphagia. 2. Mild Schatzki's ring, status post dilation of the esophagus today. 3. Small hiatal hernia. 4. Mild gastritis. 5. Mild duodenitis. RECOMMENDATIONS: [facility] [address] [place] [address] PROCEDURE REPORT Name: ELDER MIRANDA Room #: 214-P [facility]#: [id number] Admission: 09/08/17 Attend Phys: Cedrick Harris MD Discharge: Date of : 10/28/28 Report #: [id number] 1. Await biopsy results. 2. Observe the patient post-dilation. 3. We will start clear liquids as tolerated. 4. If the patient has continued dysphagia, may need an upper GI or video swallow in the near future. Thank you for allowing me to participate in his care. <ELECTRONICALLY SIGNED> By: Hema Ravi MD 09/14/17 1013 1726 [id number] Hema Ravi MD /nt
[~2017-09-08 16:17] MED LIST changes: +CIPRO500 MG PO
[2017-09-08 18:30] VITALS: BP 149/47
[2017-09-08 18:33] LABS: ABSOLUTE NEUTROPHILS 9.9 thou/uL (1.4-8.2); BASOPHILS 0.3 % (0.0-2.0); HEMATOCRIT 40.1 % (42.0-52.0); HEMOGLOBIN 13.3 gm/dL (14.0-18.0); LYMPHOCYTES 6.4 % (24.0-44.0); MCH 30.9 pg (26.0-34.0); MCHC 33.3 g/dL (28.0-37.0); MCV 92.9 fL (80.0-100.0); MONOCYTES 7.4 % (1.0-8.0); PLATELET COUNT 161 thou/uL (150-400); POLYS 85.9 % (36.0-66.0); RBC 4.31 mil/uL (4.50-6.00); RDW 13.5 % (10.5-14.5); WBC 11.5 thou/uL (4.0-11.0)
[2017-09-08 18:42] LABS: ANION GAP 14 mmol/L (7-16); BUN 42 mg/dL (7-18); CALCIUM 9.6 mg/dL (8.5-10.1); CHLORIDE 104 mmol/L (98-107); CO2 22 mmol/L (21-32); CREATININE 1.9 mg/dL (0.7-1.3); GLUCOSE 130 mg/dL (74-106); POTASSIUM 4.6 mmol/L (3.5-5.1); SODIUM 140 mmol/L (136-145)
[2017-09-08 18:51] LABS: ALBUMIN 3.2 g/dL (3.4-5.0); MAGNESIUM 2.1 mg/dL (1.8-2.4); SGOT 30 U/L (15-37); SGPT 23 U/L (30-65); TOTAL BILIRUBIN 0.6 mg/dL (<0.1-1.0); TOTAL PROTEIN 7.6 g/dL (6.4-8.2); TROPONIN-I < 0.04 ng/mL (<0.06)
[2017-09-08 18:55] LABS: BE(vivo) -3.9 mmol/L (-2 to +3); PCO2 33.1 mmHg (35.0-45.0); PO2 62.4 mmHg (80.0-100.0); pH 7.399 (7.360-7.450); sO2 92.2 % (92.0-98.0)
[2017-09-08 21:08] VITALS: BP 164/54
[2017-09-08 21:55] VITALS: BP 156/53
[2017-09-09] MEDS ORDERED: ASPIR 8181 MG PO (00:58)
[2017-09-09] MEDS ORDERED: PLAVIX 75 MG TA75 M1 PO (00:58)
[2017-09-09 05:14] VITALS: BP 152/43
[2017-09-09 05:52] LABS: HEMATOCRIT 35.7 % (42.0-52.0); HEMOGLOBIN 11.8 gm/dL (14.0-18.0); MCH 30.8 pg (26.0-34.0); MCHC 33.1 g/dL (28.0-37.0); MCV 93.1 fL (80.0-100.0); RBC 3.83 mil/uL (4.50-6.00); RDW 13.7 % (10.5-14.5); WBC 9.4 thou/uL (4.0-11.0)
[2017-09-09 06:21] LABS: CALCIUM 8.7 mg/dL (8.5-10.1); CREATININE 1.7 mg/dL (0.7-1.3); POTASSIUM 4.6 mmol/L (3.5-5.1)
[2017-09-09 07:20] VITALS: BP 145/81
[2017-09-09 07:23] VITALS: BP 141/41
[2017-09-09 15:57] VITALS: BP 135/56
[2017-09-09 16:13] LABS: URINE BILIRUBIN NEGATIVE (Negative); URINE BLOOD 2+ (Negative); URINE CLARITY CLEAR; URINE COLOR YELLOW; URINE GLUCOSE-RANDOM* NEGATIVE (Negative); URINE KETONES NEGATIVE (Negative); URINE LEUKOCYTES-REFLEX NEGATIVE (Negative); URINE NITRITE-REFLEX NEGATIVE (Negative); URINE PROTEIN (DIPSTICK) 1+ (Negative); URINE SPECIFIC GRAVITY 1.025 (1.005-1.035); URINE UROBILINOGEN 0.2 E.U./dl (0.2-1.0)
[2017-09-09 16:22] LABS: SQUAMOUS None Seen /LPF (0-3)
[2017-09-09 16:23] LABS: BACTERIA-REFLEX 1-9 Few /HPF (None Seen); CASTS None Seen /LPF (None Seen); CRYSTALS None Seen /LPF (None Seen); URINE RBC 3-10 Few /HPF (0-2); URINE WBC-REFLEX None Seen /HPF (0-5)
[2017-09-09 20:48] VITALS: BP 163/48
[2017-09-10 06:07] VITALS: BP 180/66
[2017-09-10 07:26] VITALS: BP 171/65
[2017-09-10 15:26] VITALS: BP 157/50
[2017-09-10 20:00] VITALS: BP 157/72
[2017-09-10 20:29] LABS: ABSOLUTE NEUTROPHILS 9.5 thou/uL (1.4-8.2); HEMATOCRIT 35.5 % (42.0-52.0); HEMOGLOBIN 11.9 gm/dL (14.0-18.0); LYMPHOCYTES 4.4 % (24.0-44.0); MCH 30.8 pg (26.0-34.0); MCHC 33.6 g/dL (28.0-37.0); MCV 91.6 fL (80.0-100.0); MONOCYTES 4.9 % (1.0-8.0); PLATELET COUNT 193 thou/uL (150-400); POLYS 90.7 % (36.0-66.0); RBC 3.87 mil/uL (4.50-6.00); RDW 13.3 % (10.5-14.5); WBC 10.5 thou/uL (4.0-11.0)
[2017-09-11 04:00] VITALS: BP 181/62
[2017-09-11 07:50] VITALS: BP 174/75
[2017-09-11 11:55] VITALS: BP 152/61
[2017-09-11 15:40] VITALS: BP 166/67
[2017-09-11 19:48] VITALS: BP 177/60
[2017-09-12 04:31] VITALS: BP 170/64
[2017-09-12 07:29] VITALS: BP 164/76
[2017-09-12 09:00] LABS: ABSOLUTE NEUTROPHILS 6.6 thou/uL (1.4-8.2); BASOPHILS 0.5 % (0.0-2.0); EOSINOPHILS 0.1 % (0.0-3.0); HEMATOCRIT 37.2 % (42.0-52.0); HEMOGLOBIN 12.4 gm/dL (14.0-18.0); LYMPHOCYTES 9.5 % (24.0-44.0); MCH 30.5 pg (26.0-34.0); MCHC 33.4 g/dL (28.0-37.0); MCV 91.3 fL (80.0-100.0); MONOCYTES 7.2 % (1.0-8.0); PLATELET COUNT 201 thou/uL (150-400); POLYS 82.7 % (36.0-66.0); RBC 4.08 mil/uL (4.50-6.00); RDW 13.5 % (10.5-14.5)
[2017-09-12 09:06] LABS: CALCIUM 8.7 mg/dL (8.5-10.1); CREATININE 1.4 mg/dL (0.7-1.3); POTASSIUM 3.6 mmol/L (3.5-5.1)
[2017-09-12 11:09] VITALS: BP 162/80
[2017-09-12 15:48] VITALS: BP 116/58
[2017-09-12 20:08] VITALS: BP 172/73
[2017-09-13 04:28] VITALS: BP 164/80
[2017-09-13 04:44] LABS: HEMATOCRIT 35.7 % (42.0-52.0); MCH 30.7 pg (26.0-34.0); MCHC 33.5 g/dL (28.0-37.0); MCV 91.8 fL (80.0-100.0); RBC 3.89 mil/uL (4.50-6.00); RDW 13.5 % (10.5-14.5)
[2017-09-13 04:53] LABS: CALCIUM 8.5 mg/dL (8.5-10.1); CREATININE 1.4 mg/dL (0.7-1.3); POTASSIUM 3.5 mmol/L (3.5-5.1)
[2017-09-13 07:35] VITALS: BP 172/67
[2017-09-13 11:35] VITALS: BP 114/61
[2017-09-13 15:40] VITALS: BP 150/49
[2017-09-13 20:00] VITALS: BP 167/60
[2017-09-14 02:53] LABS: HEMATOCRIT 34.2 % (42.0-52.0); HEMOGLOBIN 11.4 gm/dL (14.0-18.0); MCH 30.5 pg (26.0-34.0); MCHC 33.3 g/dL (28.0-37.0); MCV 91.6 fL (80.0-100.0); RBC 3.74 mil/uL (4.50-6.00); RDW 13.5 % (10.5-14.5)
[2017-09-14 03:04] LABS: CALCIUM 8.2 mg/dL (8.5-10.1); CREATININE 1.4 mg/dL (0.7-1.3); POTASSIUM 3.6 mmol/L (3.5-5.1)
[2017-09-14 04:00] VITALS: BP 154/53
[2017-09-14 07:44] VITALS: BP 153/74
[2017-09-14 15:13] VITALS: BP 143/50
[2017-09-14 19:54] VITALS: BP 153/72
[2017-09-15 04:06] VITALS: BP 148/75
[2017-09-15 04:34] LABS: HEMATOCRIT 35.4 % (42.0-52.0); HEMOGLOBIN 11.7 gm/dL (14.0-18.0); MCH 30.2 pg (26.0-34.0); MCV 91.5 fL (80.0-100.0); RBC 3.87 mil/uL (4.50-6.00); RDW 13.3 % (10.5-14.5)
[2017-09-15 04:42] LABS: CALCIUM 8.3 mg/dL (8.5-10.1); CREATININE 1.4 mg/dL (0.7-1.3); POTASSIUM 3.7 mmol/L (3.5-5.1)
[2017-09-15 07:34] VITALS: BP 156/77
[2017-09-15 11:16] VITALS: BP 133/56
[2017-09-15 15:08] VITALS: BP 114/64
[2017-09-15 19:37] VITALS: BP 130/59
[2017-09-16 05:00] VITALS: BP 151/74
[2017-09-16 07:39] VITALS: BP 148/64
[2017-09-16] MEDS ORDERED: AUGMENTIN 875-1 EACH PO (14:59)
[2017-09-16] MEDS ORDERED: DUONEB 2.5-0.5 M3 ML INH (14:59)
== END 2017-09-16 15:59 | DRG 177 ==
LOC: ER 16:17 → 4N 19:26 → EROBS 19:26 → 4N 21:10 → 2N 09-10 13:14
PROVIDERS: Hospitalist; Nurse Practitioner Family; Physician Assistant
PROC: 0D758ZZ Dilation of Esophagus, Via Natural or Artificial Opening Endoscopic (ICD-10-PCS; 2017-09-09)
PROC: 0DB98ZX Excision of Duodenum, Via Natural or Artificial Opening Endoscopic, Diagnostic (ICD-10-PCS; 2017-09-09)
PROC: 0DB68ZX Excision of Stomach, Via Natural or Artificial Opening Endoscopic, Diagnostic (ICD-10-PCS; 2017-09-09)
PROC: 0DH68UZ Insertion of Feeding Device into Stomach, Via Natural or Artificial Opening Endoscopic (ICD-10-PCS; principal; 2017-09-16)
DX: J69.0 Pneumonitis due to inhalation of food and vomit (principal); J96.01 Acute respiratory failure with hypoxia; R65.20 Severe sepsis without septic shock; I44.2 Atrioventricular block, complete; N17.9 Acute kidney failure, unspecified; I69.951 Hemiplegia and hemiparesis following unspecified cerebrovascular disease affecting right dominant side; I73.9 Peripheral vascular disease, unspecified; K22.2 Esophageal obstruction; K29.70 Gastritis, unspecified, without bleeding; K29.80 Duodenitis without bleeding; E86.0 Dehydration; E78.5 Hyperlipidemia, unspecified; Z60.2 Problems related to living alone; R13.12 Dysphagia, oropharyngeal phase; E53.8 Deficiency of other specified B group vitamins; Z88.8 Allergy status to other drugs, medicaments and biological substances; Z88.6 Allergy status to analgesic agent; Z91.041 Radiographic dye allergy status; Z90.49 Acquired absence of other specified parts of digestive tract; Z87.891 Personal history of nicotine dependence; Z95.0 Presence of cardiac pacemaker; Z79.82 Long term (current) use of aspirin; Z79.899 Other long term (current) drug therapy; Z87.11 Personal history of peptic ulcer disease
CPT/HCPCS: 10081; 10790; 62110; 62900; 70005

== ENCOUNTER 2017-09-16 13:58 | Inpatient (IN) | payer OTHER ==
[~2017-09-16] VITALS: Ht 195.6 cm; Wt 88.1 kg
--- NOTE | ~2017-09-16 | D ---
[facility] [address] [place] [address] DISCHARGE SUMMARY Name: ELDER MIRANDA Room #: 510-P ADM IN M.R.#: [id number] Admission: 09/16/17 Attend Phys: Munod Corona MD Discharge: Date of : 10/28/28 Report #: [id number] THIS REPORT FOR: //name// CC: Mundo Bradley DATE OF SERVICE: 09/30/2017 ADDENDUM DISCHARGE DICTATION The patient missed some therapy yesterday, 09/29/2017, secondary to a schedule conflict. <ELECTRONICALLY SIGNED> By: Mundo Corona MD 09/30/17 1314 0938 1024 Mundo Corona MD /nt
--- NOTE | ~2017-09-16 | PLAN ---
[facility] [place] [address] REHAB UNIT PLAN OF CARE Name: ELDER MIRANDA Room #: 510-P [facility] IN M.R.#: [id number] Admission: 09/16/17 Attend Phys: Mundo Corona MD Discharge: Date of : 10/28/28 Report #: [id number] THIS REPORT FOR: //name// CC: Mundo Bradley DATE OF SERVICE: 09/17/2017 OVERALL PLAN OF CARE The overall plan of care is based on the preadmission screen, post-admission physician evaluation and information garnered from therapy assessments. 1. Estimated length of stay is probably at least 10 days to 2 weeks. 2. Medical prognosis is reasonably good. 3. Anticipated interventions includes the interdisciplinary acute inpatient rehabilitation program with PT and OT and had added speech regarding his complaints of orofacial muscular weakness. He continues n.p.o. with his dysphagia and is on tube feedings. Rehab nursing is involved along with the interdisciplinary acute rehabilitation team and the specialty development consultant physicians. 4. Anticipated functional outcomes would be for the patient to become modified independent at least at the walker level with mobility and ADLs as well as improved orofacial muscular strength, so he can return back to the home setting. He does have the prior CVA with residual left-sided weakness and has the dysphagia post-PEG tube. 5. Discharge destination would be back to his assisted living facility. 6. Expected therapy by discipline would include PT, OT and speech 1 hour per day each five days a week throughout the duration of the acute inpatient rehabilitation stay. We may be able to decrease the speech therapy in favor of increasing PT and OT depending upon how he does. <ELECTRONICALLY SIGNED> By: Mundo Corona MD 09/23/17 1516 0945 1058 Mundo Corona MD /nt
--- NOTE | ~2017-09-16 | HC ---
[facility] [place] [place] [address] CONSULTATION Name: ELDER MIRANDA Room #: 510-P [facility] IN M.R.#: [id number] Admission: 09/16/17 Attend Phys: Mundo Corona MD Discharge: Date of : 10/28/28 Report #: [id number] THIS REPORT FOR: //name// CC: Mundo Contrerasdoretha DATE OF SERVICE: 09/18/2017 NEUROBEHAVIORAL STATUS EXAM: ATTENDING PHYSICIAN: Mundo Corona MD. COPER HAND: Bill Castro, PhD. CLINICAL PRESENTATION: The patient is an 86-year-old male admitted to the rehab unit at [facility] for a comprehensive inpatient rehabilitation program to improve functional mobility, activities of daily living and self-care and mental status secondary to deficits from medical complexity and general debility. He is reported to have been admitted to the hospital following difficulty in swallowing. He was brought in through the Emergency Room and diagnosed and noted to have an acute hypoxic respiratory failure secondary to community-acquired pneumonia. He has a prior CVA with residual left hemiparesis. His diagnostic assessment on admission includes severe dysphagia, status post PEG tube placement on 09/16/2017, late effect CVA with left hemiparesis, orofacial numbness and weakness, gait instability, aspiration pneumonia, acute respiratory failure secondary to aspiration pneumonia, acute renal insufficiency, prior left carotid endarterectomy, history of third degree heart block, status post permanent pacemaker and peripheral vascular disease. A complete description of his medical condition and history along with medications can be found in his medical record. Neuropsychological consultation was requested to provide assistance in the assessment of cognitive and emotional status and to provide recommendations and services. Prior to this most recent event, he is reported to have been living independently in his own home. He has one daughter that lives outside the [place] area. The patient's about 6 years ago. 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 There is no prior history of treatment for anxiety/depression or alcohol/drug abuse that is reported. TECHNIQUES UTILIZED: Clinical interview, review of medical records, staff consultation and behavioral observation, mini mental status exam 2 standard version, clock drawing, category fluency assessment (animals) and brief abstract reasoning test. [address] [address] CONSULTATION Name: ELDER MIRANDA Room #: 510-P [facility] IN ..#: [id number] Admission: 09/16/17 Attend Phys: Mundo Corona MD Discharge: Date of : 10/28/28 Report #: [id number] EXAMINATION FINDINGS: The patient was alert and cooperative with the assessment. He was unable to describe the reason for his hospitalization. His symptoms included confusion and disorientation on admission. Swallowing deficits and problems with his memory are also described. He does not indicate problems with anxiety, depression or sleep. A feeding tube is in place. However, the patient is frustrated with his inability to swallow and complains of a dry mouth. Performance on the MMSE 2 brief version is extremely low with a raw score of 10 of 16 and a T score of 15. He was 3of 3 for initial registration, 3 of 5 for orientation to time and 4 of [address]. He was 0 of 3 for immediate recall of 3 items after a brief time delay and distraction. MMSE 2 standard version was extremely low, but better than the brief version with a raw score of 20 of 30, which is a T score of 25 and percentile rank of 1. He was 1 of 5 for serial sevens, 2 of 2 for naming, 1 of 1 for repetition, 3 of 3 for auditory comprehension. He could read and follow a single command and write a sentence. The patient was also able to accurately copy a simple geometric design. Clock drawing was impaired as he was unable to accurately place the hands at a designated time. Brief abstract reasoning test was 1 of 8 indicating an impairment in a verbally mediated abstract reasoning. Category fluency as assessed through animals was a raw score 7 and a T score of 31, which is at the 3rd percentile and likely moderate range of impairment. The patient is presenting with deficits in immediate memory, sustained attention and concentration and executive functioning. Decreased insight into his deficits is suggested. DIAGNOSTIC IMPRESSION: Major neurocognitive disorder (dementia), unspecified, with decreased insight -- moderate impairment. RECOMMENDATIONS: The patient will require assistance in the management of medication and nutrition upon his discharge home. Driving should be discontinued. He lacks insight and severity of his deficits which will interfere with overall safety. Family education into the patient's deficits is necessary to help provide adequate structure and supervision for the patient following discharge. A more thorough neuropsychological assessment is indicated if he is to return to his prior level of driving and independence. An outpatient workup for dementia is suggested. [facility] [address] [place] [address] CONSULTATION Name: ELDER MIRANDA Room #: 510-P [facility] IN M.R.#: [id number] Admission: 09/16/17 Attend Phys: Mundo Corona MD Discharge: Date of : 10/28/28 Report #: [id number] Thank you very much for allowing me to provide the consultation on this patient. <ELECTRONICALLY SIGNED> By: Bill Castro, PhD 09/19/17 1748 1343 2124 Bill Castro, PhD /nt
--- NOTE | ~2017-09-16 | HC ---
[facility] [place] [address] CONSULTATION Name: ELDER MIRANDA Room #: 510-P [facility] IN M.R.#: [id number] Admission: 09/16/17 Attend Phys: Donny Corona MD Discharge: Date of : 10/28/28 Report #: [id number] THIS REPORT FOR: //name// CC: DONNY SCHWARTZ REASON FOR CONSULTATION: Masses seen on CT of the neck. 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 He currently lives up near about [facility] and [facility] by his description. The patient had been admitted to the hospital in acute side for respiratory failure and aspiration pneumonia on the acute side. He had severe dysphagia and had been n.p.o., and he had a PEG tube placed on 09/16. He has had a recent repeat swallow study that showed marked improvement. He had a CT of the neck with soft tissues done yesterday on 09/27, and this found within the left neck just adjacent to and along the posterior margin of the hyoid bone and ovoid low attenuation peripherally enhancing, likely necrotic mass measuring 1.4 x 1.3 x 2.8 cm. There is also associated asymmetric soft tissue fullness just left of the epiglottis. They thought this was concerning for a primary necrotic neck malignancy. Abscess considered less likely. There is also an additional ovoid soft tissue nodule just posterior to the right hyoid bone measuring 8 x 11 x 17 mm. The airway was patent. There are also some postoperative changes from right carotid endarterectomy. The patient was interviewed on rehabilitation floor. He is fairly alert and able to answer questions. He describes no neck pain ____ He is also not aware of any general teeth infection or upper neck masses, nor there are any on exam. I explained to him that the CT neck raises questions for possible cancer versus inflammation, but I think given his age and multiple health issues that he would be a poor candidate for chemo or radiation therapy if cancer is found. On the other hand, if he had much of any complications from an FNA or biopsy, it would make it much more difficult for him to recover, I think at this point and he agrees, we would just observe. We can see him again in 2-3 weeks to reassess. I have talked with Dr. Turner, I will reach out to Dr. Bradley to discuss the same. PAST MEDICAL HISTORY: Notable for history of community-acquired pneumonia with hypoxia, which is now improved. He has swallowing difficulties. 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 Also, history of pacemaker with third-degree heart block. FAMILY HISTORY: It sounds like both mother and father had cancer, he is not sure what type. Has a daughter who lives down in [place]. several years ago. He is currently a nonsmoker, currently a nondrinker, no street drugs. Before this, he lived independently. PHYSICAL EXAMINATION: VITAL SIGNS: Height is 6 feet 5 inches, which is 195.6 cm. Weight 190.7 pounds or 86.5 kilograms. Blood pressure is 147/53, O2 sat 96% on room air, respirations 18, pulse 65, temperature 98.6. GENERAL: The patient's mood, he is pleasant, conversant. The patient is moving extremities. HEENT: Oropharynx without any masses or erythema or leukoplakia. NECK: Without any palpable enlarged lymph nodes. LUNGS: Mostly clear anteriorly. CARDIOVASCULAR: Regular rate. LYMPHATIC: No enlarged lymph nodes in the supraclavicular, cervical, axillary, inguinal region. ABDOMEN: No masses. EXTREMITIES: Without clubbing or cyanosis. ASSESSMENT AND PLAN: 1. Soft tissue masses near the hyoid in an 86-year-old patient, discussed with the patient that these may be cancer, but even if they are I do not think he would be able to tolerate therapy and would probably be detrimental to him to treat it if found. I also worry that with his recent improvement, any intervention at this time with side effects would push him back down or shorten his life span compared to benefit it. At this time, I have suggested and he has agreed that we will see him again we might consider fine needle aspirate of these areas, we could also have him see ENT at that time. We will see how he does clinically during this time, though I am concerned that he will likely decline, but I do think really there going to be changes with any intervention, we would likely hasten his decline. 2. Debility, going to [facility], advanced health care for rehabilitation efforts. 3. Chronic kidney disease with hyperkalemia. Continue monitoring and ____ 4. B12 deficiency, replace. 5. History of carotid endarterectomy. No intervention. 6. History of a cerebrovascular accident with left hemiparesis. Statins. 7. Third degree heart block, has a pacemaker. 8. Peripheral arterial disease. No specific intervention. [facility] [address] [place] [address] CONSULTATION Name: ELDER MIRANDA Room #: 510-P [facility] IN ..#: [id number] Admission: 09/16/17 Attend Phys: Donny Corona MD Discharge: Date of : 10/28/28 Report #: [id number] 9. Gastrointestinal and deep venous thrombosis prophylaxis, continue aspirin and Pepcid and ambulation will be available. <ELECTRONICALLY SIGNED> By: Goivanni Brandon MD 09/30/17 0809 0849 0944 Giovanni Brandon MD /nt
--- NOTE | ~2017-09-16 | HC ---
[facility] [place] [address] CONSULTATION Name: ELDER MIRANDA Room #: 510-P [facility] IN .R.#: [id number] Admission: 09/16/17 Attend Phys: Donny Corona MD Discharge: Date of : 10/28/28 Report #: [id number] THIS REPORT FOR: //name// CC: DONNY Low MD DATE OF SERVICE: 09/29/2017 SURGEON: Sabino Joel MD. REASON FOR CONSULTATION: Reconsultation for hoarseness and dysphagia with abnormal CT. HISTORY OF PRESENT ILLNESS: The patient is an 86-year-old gentleman admitted on 09/16/2017 to the rehab floor. The patient had been originally seen in the Emergency Department on 09/08/2017 complaining of sore throat. His friend had noted a sore throat and cough that had been ongoing for a while. The patient was complaining of shortness of breath, difficulty swallowing, hoarseness and weakness. His history is significant for tobacco abuse. The patient was admitted to the hospital. He was seen by my partner, Dr. Low, on 09/08/2017 for dysphagia. The patient has significant comorbid problems and had been transferred from facility. Dr. Low had recommended an endoscopy, which the patient refused as well as a CT of his neck. This was compromised by an elevated BUN and creatinine. Because of his persistent dysphagia, eventually he was seen by Dr. Thomas and a PEG tube was placed. The patient's sore throat, hoarseness and dysphagia have progressed. I was called yesterday evening by Dr. Brandon to evaluate him after CT scan done 09/27/2017 had shown a 1.4 x 1.3 x 2.8 cm mass in the level 3 neck opposite the hyoid with necrosis concerning for a metastatic necrotic lymph node. No comment was made in the larynx on this CT, but a comment was made of associated asymmetric soft tissue fullness just left of the epiglottis. I was called for reconsultation and otolaryngic evaluation of this finding on CT. The patient was seen in his hospital room already packed and ready to be discharged to rehab hospital. The patient had obvious hoarseness and difficulty with even handling his secretions. He complains of persistent sore throat. PAST MEDICAL HISTORY: Extensive with multiple comorbid medical concerns. This [address] [address] CONSULTATION Name: ELDER MIRANDA Room #: 510-P [facility] IN ..#: [id number] Admission: 09/16/17 Attend Phys: Donny Corona MD Discharge: Date of : 10/28/28 Report #: [id number] includes a previous CVA with left-sided weakness in 1998, fatigue, history of third-degree AV block with pacemaker placement, peripheral vascular disease. PAST SURGICAL HISTORY: History of cholecystectomy, herniorrhaphy, carotid endarterectomy in 2003. MEDICATIONS: Contained in his MAR. ALLERGIES: CEPHALEXIN, CONTRAST DYE AND OXYCODONE. SOCIAL HISTORY: He lives in an assisted living facility at [facility]. He has no family in the area, but a daughter in [place]. He refused to let me call her. REVIEW OF SYSTEMS: The patient is again complaining of dysphagia, difficulty swallowing, pain in his throat and progressive hoarseness. Remaining review of systems is otherwise unremarkable. PHYSICAL EXAMINATION: GENERAL: Shows a well-developed 86-year-old male. He is alert, oriented and conversant. VITAL SIGNS: Show a temperature of 98.2, blood pressure 145/53, pulse of 67. He is 97% on room air. HEENT: Normocephalic. Pupils equal, round, reactive to light. Otologic exam: Cerumen, normal tympanic membrane. Nasal exam: Deviated septum to the left, nonobstructing. Oral cavity: Intact mucosa. No tongue, floor of mouth, or palate lesion. Hypopharynx was examined with flexible endoscopy after topical Nic-Synephrine and lidocaine, demonstrates an exophytic mass in his larynx filling 50% of the endolarynx extending from the aryepiglottic fold and lateral border of epiglottis to midline. This affects the excursion of the epiglottis. The patient has paralyzed vocal cord on the left side with poor compensation on the right. There is pooling of secretions posteriorly. Neck is tender. There is an lymph node present, level 3, 2 cm opposite the hyoid. NEUROLOGIC: Cranial nerves 2-12 are otherwise intact. LABORATORY DATA: Reviewed includes recent CT scan as dictated above. The patient's electrolytes are in the normal range. Most recent CBC was 09/28/2017 showing white count of 6500 and hemoglobin of 10. ASSESSMENT: 1. 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 2. Necrotic level 3 lymph node concerning for metastatic lymphadenopathy secondary to the endolaryngeal tumor. 3. 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 4. Aspiration pneumonia with aspiration risk. 5. Paralyzed left vocal cord. 6. Acute renal failure. [facility] [address] [place] [address] CONSULTATION Name: ELDER MIRANDA Room #: 510-P [facility] IN [place]#: [id number] Admission: 09/16/17 Attend Phys: Donny Corona MD Discharge: Date of : 10/28/28 Report #: [id number] 7. Peripheral vascular disease. 8. History of left carotid endarterectomy. 9. Third-degree heart block, status post pacemaker placement. 10. Cognitive deficit with dementia. PLAN: Avi discussion with the patient today. I have recommended ultrasound directed fine needle aspiration for diagnosis of this lymph node. Discussion can then be made with the patient on options for treatment. Surgically, this would require total laryngectomy for treatment as the patient would not tolerate any conservative laryngectomy. Options also include chemoradiation, again not without significant comorbidity especially with his other comorbid problems. I have warned the patient that this tumor is large and because of its size, will continue doubling and become an obstructive laryngeal cancer relatively soon. In addition, the pain and dysphagia will worsen. The patient is a definite aspiration risk. I have discussed this in detail with the patient. He would like to proceed with fine needle aspiration. I feel this is best done in the hospital prior to his discharge to the rehabilitation center so that we have an adequate diagnosis to discuss with him. The patient has voiced to me that if this is cancer, he does not care to do anything else, but I feel with his dementia and with his emotional upset and not going to the rehab facility today, this is a difficult decision for him to make. I appreciate the consultation and ability to share in his care. By: 1606 2045 Sabino Joel MD /wagner
--- NOTE | ~2017-09-16 | O ---
Formerly [facility] [place] [address] OPERATIVE REPORT Name: ELDER MIRANDA Room #: 510-P [facility] IN M.R.#: [id number] Admission: 09/16/17 Attend Phys: Mundo Corona MD Discharge: Date of : 10/28/28 Report #: [id number] THIS REPORT FOR: //name// CC: DR ELIO Bradley DATE OF SERVICE: 09/29/2017 SURGEON: Sabino Joel MD REASON FOR CONSULTATION: Necrotic level 3 lymph node, left neck. INDICATIONS: The patient is a gentleman first admitted in late August with hoarseness and dysphagia and sore throat. CT was recommended and just done on the . I was called yesterday evening to see him for necrotic lymph node. DESCRIPTION OF PROCEDURE: In the patient's hospital room, topical anesthesia was achieved with 1% Nic-Synephrine nasal spray and 4% lidocaine after an appropriate period. Examination was made with flexible laryngoscope. Complete examination was made of the nasal cavity. The oral cavity, nasopharynx, oropharynx and hypopharynx with the exception of the larynx, the other structures were normal. Examination revealed an exophytic mass in the left aryepiglottic fold and epiglottis extending into the midline and limiting excursion of the epiglottis. This fills about 50% of the patient's airway. 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 Pooling of secretions were noted at the cricopharyngeus. 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 The patient tolerated the procedure well. There were no complications. By: [id number] Sabino Joel MD /nt
--- NOTE | ~2017-09-16 | H ---
[facility] [place] [address] HISTORY AND PHYSICAL Name: ELDER MIRANDA Room #: 510-P ADM IN ..#: [id number] Admission: 09/16/17 Attend Phys: Mundo Corona MD Discharge: Date of : 10/28/28 Report #: [id number] THIS REPORT FOR: //name// CC: Mundo Bradley DATE OF SERVICE: 09/16/2017 HISTORY AND PHYSICAL/POSTADMISSION PHYSICIAN EVALUATION HISTORY OF PRESENT ILLNESS: The patient is an 86-year-old white male who originally was admitted to [facility] on 09/08/2017 with sore throat, weakness, poor appetite, difficulty swallowing. He was noted to have acute hypoxic respiratory failure secondary to community-acquired pneumonia, acute renal insufficiency and dysphagia. He was noted to have a prior CVA and had residual left-sided involvement. He noted numbness around his gums and facial area. He underwent esophageal dilatation of a Schatzki's ring. He had problems with aspiration pneumonia, treated with IV antibiotics, IV fluids, and nebulizers. He continued to have failed swallow study and underwent PEG tube placement on 09/16/2017. He was noted to have a significant decline in his functional abilities and has now been admitted for acute in-hospital inpatient rehabilitation. He has been treated for right lower lobe pneumonia. PAST MEDICAL HISTORY: Includes the prior CVA with left-sided weakness in 1998. He has had some problems with fatigue on the left side with increased use and has had the numbness and swallowing issues of his orofacial area. Past history also includes a pacemaker for third degree heart block, decreased circulation in the legs, for which he follows with Cardiology, cholecystectomy, hernia repair, carotid surgery in 2003, benign growth on prostate removed. PAST SURGICAL HISTORY: As noted above. MEDICATIONS: Please see the full medication listing. The list includes vitamins, herbals, and supplements. ALLERGIES: CEPHALEXIN, CONTRAST DYE, AND OXYCODONE. SOCIAL HISTORY: Lives in an assisted living facility at [facility]. He does have a [employer]. He was able to perform his basic ADLs, but has meals and cleaning provided. He does not drive himself. REVIEW OF SYSTEMS: The patient was seen yesterday. No complaints of chest pain or shortness of breath. No abdominal discomfort except for some minor expected post-peg. He has some weakness on the left side, worse with activity. He still has some facial numbness and complaints of weakness of the left facial musculature along with his swallowing. Denies any bowel or bladder changes. [facility] [address] [place] [address] HISTORY AND PHYSICAL Name: ELDER MIRANDA Room #: 510-P [facility] IN .R.#: [id number] Admission: 09/16/17 Attend Phys: Mundo Corona MD Discharge: Date of : 10/28/28 Report #: [id number] PHYSICAL EXAMINATION: GENERAL: He is a pleasant 86-year-old white male in no obvious distress. He was seen yesterday. VITAL SIGNS: Temperature 36.7, pulse 60, respirations 18, blood pressure 164/49. HEENT: Appeared to be benign. CHEST: Sounded clear to auscultation except for maybe some decreased breath sounds at the bases. CARDIAC: Regular rate, has a paced beat. ABDOMEN: Bowel sounds positive. He does have a PEG tube, which has been newly placed. GENITOURINARY AND RECTAL: Deferred. NEUROLOGIC AND MUSCULOSKELETAL: Cranial nerves appeared intact, although he does have a depressed left nasolabial fold. He is able to verbalize reasonably well, although he complains of some orofacial weakness. Functional range of motion of both upper and lower extremities. I would grade him at a 4-/5, although he appears to be mildly weaker on the left upper and left lower extremity. DTRs are trace to 1. No distal lower extremity edema. No calf swelling. Transfers have been mod assist and needs assistance with functional limited mobility. He has been min to standby assistance for lower body dressing. He is n.p.o. and was just started on the tube feedings last evening. ASSESSMENT: An 86-year-old white male with the following problem list: 1. Medical complexity with generalized debilitation. 2. Severe dysphagia, now status post PEG tube placement on 09/16/2017. 3. 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 4. Complaints of orofacial numbness and weakness. We will ask Speech Therapy to assist regarding orofacial muscle exercises. 5. Gait instability. 6. Aspiration pneumonia. 7. Acute hypoxic respiratory failure secondary to aspiration pneumonia. 8. Acute renal insufficiency. 9. Prior left carotid endarterectomy. 10. History of third degree heart block, status post permanent pacemaker. 11. Peripheral vascular disease. PLAN: The patient is admitted for acute in-hospital inpatient rehabilitation. From a postadmission physician evaluation perspective, there are no relevant changes since the preadmission screening. Please see the above review of prior and current medical and functional conditions and comorbidities. Please see the patient's previous and current functional status. As far as risk of complications, the patient has multiple medical comorbidities as noted above. Initial plan of care involves the interdisciplinary acute inpatient rehabilitation program with the goal of maximizing the patient's functional independence, so that he can hopefully return back to his prior living [address] [address] HISTORY AND PHYSICAL Name: ELDER MIRANDA Room #: 510-P ADM IN [facility]#: [id number] Admission: 09/16/17 Attend Phys: Mundo Corona MD Discharge: Date of : 10/28/28 Report #: [id number] situation. Measurable functional goals would be for the patient to become modified independent with transfers, mobility and ADLs, so he can hopefully return back to his prior living situation. Prognosis is reasonably good with estimated length of stay probably at least 10 days to 2 weeks. Potential barriers would include his multiple medical comorbidities and decreased functional status. The patient meets diagnostic criteria for an acute in-hospital inpatient rehabilitation stay. He meets the medical necessity criteria for an acute rehab stay. He does have the tolerance for therapies and has appropriate discharge goals back to the home setting. <ELECTRONICALLY SIGNED> By: Mundo Corona MD 09/23/17 1516 [id number] Mundo Corona MD /nt
[~2017-09-16 13:58] MED LIST changes: +ASPIR 8181 MG PO; +PLAVIX 75 MG TA75 M1 PO
[2017-09-16] MEDS ORDERED: DUONEB 2.5-0.5 M3 ML INH (14:59)
[2017-09-16] MEDS ORDERED: AUGMENTIN 875-1 EACH PO (14:59)
[2017-09-16 16:15] VITALS: BP 174/66
[2017-09-16 19:52] VITALS: BP 166/72
[2017-09-17 02:59] LABS: HEMATOCRIT 35.1 % (42.0-52.0); HEMOGLOBIN 11.6 gm/dL (14.0-18.0); MCH 30.4 pg (26.0-34.0); MCHC 33.1 g/dL (28.0-37.0); RBC 3.82 mil/uL (4.50-6.00); RDW 13.7 % (10.5-14.5)
[2017-09-17 03:05] LABS: CALCIUM 8.5 mg/dL (8.5-10.1); CREATININE 1.4 mg/dL (0.7-1.3); POTASSIUM 3.8 mmol/L (3.5-5.1)
[2017-09-17 07:55] VITALS: BP 164/49
[2017-09-17 21:34] VITALS: BP 162/51
[2017-09-18 07:40] VITALS: BP 135/47
[2017-09-18 20:50] VITALS: BP 152/43
[2017-09-19 08:14] VITALS: BP 133/36
[2017-09-19 19:22] VITALS: BP 139/58
[2017-09-20 08:00] VITALS: BP 139/64
[2017-09-20 19:44] VITALS: BP 133/61
[2017-09-21 06:10] LABS: ABSOLUTE NEUTROPHILS 3.5 thou/uL (1.4-8.2); BASOPHILS 1.3 % (0.0-2.0); EOSINOPHILS 1.6 % (0.0-3.0); HEMATOCRIT 32.8 % (42.0-52.0); LYMPHOCYTES 19.3 % (24.0-44.0); MCH 30.7 pg (26.0-34.0); MCHC 33.4 g/dL (28.0-37.0); MCV 91.7 fL (80.0-100.0); MONOCYTES 8.6 % (1.0-8.0); PLATELET COUNT 227 thou/uL (150-400); POLYS 69.2 % (36.0-66.0); RBC 3.58 mil/uL (4.50-6.00)
[2017-09-21 06:24] LABS: CALCIUM 8.6 mg/dL (8.5-10.1); CREATININE 1.4 mg/dL (0.7-1.3); MAGNESIUM 2.1 mg/dL (1.8-2.4); POTASSIUM 4.5 mmol/L (3.5-5.1)
[2017-09-21 08:15] VITALS: BP 103/50
[2017-09-21 19:36] VITALS: BP 137/51
[2017-09-22 04:07] LABS: GLYCOHEMOGLOBIN (HGB A1C) 6.5 % (4.8-5.6)
[2017-09-22 07:45] VITALS: BP 137/55
[2017-09-22 19:45] VITALS: BP 112/31
[2017-09-22 19:47] VITALS: BP 121/39
[2017-09-23 20:14] VITALS: BP 148/61
[2017-09-24 05:35] LABS: ABSOLUTE NEUTROPHILS 3.5 thou/uL (1.4-8.2); BASOPHILS 1.4 % (0.0-2.0); EOSINOPHILS 1.8 % (0.0-3.0); HEMATOCRIT 30.6 % (42.0-52.0); HEMOGLOBIN 10.4 gm/dL (14.0-18.0); LYMPHOCYTES 21.5 % (24.0-44.0); MCH 30.7 pg (26.0-34.0); MCHC 33.9 g/dL (28.0-37.0); MCV 90.7 fL (80.0-100.0); MONOCYTES 7.7 % (1.0-8.0); PLATELET COUNT 208 thou/uL (150-400); POLYS 67.6 % (36.0-66.0); RBC 3.38 mil/uL (4.50-6.00); RDW 13.8 % (10.5-14.5); WBC 5.2 thou/uL (4.0-11.0)
[2017-09-24 05:47] LABS: CALCIUM 8.5 mg/dL (8.5-10.1); CREATININE 1.8 mg/dL (0.7-1.3); MAGNESIUM 2.3 mg/dL (1.8-2.4)
[2017-09-24 07:30] VITALS: BP 134/52
[2017-09-24 20:57] VITALS: BP 125/51
[2017-09-25 04:42] LABS: HEMATOCRIT 28.1 % (42.0-52.0); HEMOGLOBIN 9.6 gm/dL (14.0-18.0); MCH 31.1 pg (26.0-34.0); MCHC 34.3 g/dL (28.0-37.0); MCV 90.7 fL (80.0-100.0); RBC 3.1 mil/uL (4.50-6.00); RDW 13.6 % (10.5-14.5); WBC 4.3 thou/uL (4.0-11.0)
[2017-09-25 04:51] LABS: CREATININE 1.7 mg/dL (0.7-1.3); MAGNESIUM 2.1 mg/dL (1.8-2.4)
[2017-09-25 08:00] VITALS: BP 140/50
[2017-09-25 19:29] VITALS: BP 140/53
[2017-09-26 05:50] LABS: HEMATOCRIT 31.3 % (42.0-52.0); HEMOGLOBIN 10.5 gm/dL (14.0-18.0); MCH 30.8 pg (26.0-34.0); MCHC 33.7 g/dL (28.0-37.0); MCV 91.5 fL (80.0-100.0); RBC 3.42 mil/uL (4.50-6.00); RDW 13.8 % (10.5-14.5); WBC 5.4 thou/uL (4.0-11.0)
[2017-09-26 06:00] LABS: CALCIUM 8.1 mg/dL (8.5-10.1); CREATININE 1.4 mg/dL (0.7-1.3); MAGNESIUM 1.8 mg/dL (1.8-2.4); POTASSIUM 5.3 mmol/L (3.5-5.1)
[2017-09-26 07:38] VITALS: BP 134/53
[2017-09-26 19:26] VITALS: BP 145/58
[2017-09-27 04:54] LABS: BASOPHILS 1.1 % (0.0-2.0); HEMATOCRIT 29.1 % (42.0-52.0); HEMOGLOBIN 9.9 gm/dL (14.0-18.0); LYMPHOCYTES 25.1 % (24.0-44.0); MCH 30.8 pg (26.0-34.0); MCV 90.7 fL (80.0-100.0); MONOCYTES 9.5 % (1.0-8.0); PLATELET COUNT 169 thou/uL (150-400); POLYS 62.3 % (36.0-66.0); RDW 13.6 % (10.5-14.5); WBC 4.8 thou/uL (4.0-11.0)
[2017-09-27 05:07] LABS: CREATININE 1.4 mg/dL (0.7-1.3); MAGNESIUM 1.7 mg/dL (1.8-2.4); POTASSIUM 5.3 mmol/L (3.5-5.1)
[2017-09-27 07:45] VITALS: BP 136/55
[2017-09-27 19:12] VITALS: BP 163/59
[2017-09-28 05:30] LABS: ABSOLUTE NEUTROPHILS 5.8 thou/uL (1.4-8.2); BASOPHILS 0.3 % (0.0-2.0); HEMATOCRIT 29.2 % (42.0-52.0); LYMPHOCYTES 9.1 % (24.0-44.0); MCHC 34.3 g/dL (28.0-37.0); MCV 90.2 fL (80.0-100.0); MONOCYTES 1.2 % (1.0-8.0); PLATELET COUNT 173 thou/uL (150-400); POLYS 89.4 % (36.0-66.0); RBC 3.24 mil/uL (4.50-6.00); RDW 13.4 % (10.5-14.5); WBC 6.5 thou/uL (4.0-11.0)
[2017-09-28 05:40] LABS: CALCIUM 8.7 mg/dL (8.5-10.1); CREATININE 1.5 mg/dL (0.7-1.3); MAGNESIUM 1.8 mg/dL (1.8-2.4); POTASSIUM 5.4 mmol/L (3.5-5.1)
[2017-09-28 08:01] VITALS: BP 129/44
[2017-09-28 20:08] VITALS: BP 147/53
[2017-09-29 08:43] LABS: CALCIUM 8.8 mg/dL (8.5-10.1); CREATININE 1.3 mg/dL (0.7-1.3); POTASSIUM 4.1 mmol/L (3.5-5.1)
[2017-09-29 09:15] VITALS: BP 145/53
[2017-09-29] MEDS ORDERED: B-12500 MCG PO (09:58)
[2017-09-29] MEDS ORDERED: ACIDOPHILUS1 EAC4 PO (09:58)
[2017-09-29] MEDS ORDERED: WELCHOL 625 MG625 M1 PO (09:58)
[2017-09-29 19:58] VITALS: BP 154/67
[2017-09-30 08:40] VITALS: BP 149/55
== END 2017-09-30 16:20 | DRG 947 ==
PROVIDERS: Internal Medicine; Nurse Practitioner; Physical Medicine & Rehabilitation
PROC: 0CJS8ZZ Inspection of Larynx, Via Natural or Artificial Opening Endoscopic (ICD-10-PCS; principal; 2017-09-29)
DX: R53.81 Other malaise (principal); J96.01 Acute respiratory failure with hypoxia; J69.0 Pneumonitis due to inhalation of food and vomit; I69.354 Hemiplegia and hemiparesis following cerebral infarction affecting left non-dominant side; I44.2 Atrioventricular block, complete; N17.9 Acute kidney failure, unspecified; R13.10 Dysphagia, unspecified; R26.9 Unspecified abnormalities of gait and mobility; I73.9 Peripheral vascular disease, unspecified; F01.50 Vascular dementia, unspecified severity, without behavioral disturbance, psychotic disturbance, mood disturbance, and anxiety; R53.1 Weakness; F41.9 Anxiety disorder, unspecified; F32.9 Major depressive disorder, single episode, unspecified; E78.5 Hyperlipidemia, unspecified; E53.8 Deficiency of other specified B group vitamins; R20.0 Anesthesia of skin; I12.9 Hypertensive chronic kidney disease with stage 1 through stage 4 chronic kidney disease, or unspecified chronic kidney disease; J38.01 Paralysis of vocal cords and larynx, unilateral; E87.5 Hyperkalemia; N18.3 Chronic kidney disease, stage 3 (moderate); Z93.1 Gastrostomy status; Z95.0 Presence of cardiac pacemaker; Z90.49 Acquired absence of other specified parts of digestive tract; Z88.6 Allergy status to analgesic agent; Z88.1 Allergy status to other antibiotic agents; Z91.041 Radiographic dye allergy status; Z87.891 Personal history of nicotine dependence; Z88.8 Allergy status to other drugs, medicaments and biological substances; Z87.11 Personal history of peptic ulcer disease
CPT/HCPCS: 10112